=== PATIENT | female | born 1955 | race Hispanic/Latino ===

== ENCOUNTER → 2018-05-31 | Day surgery (SDC) | payer MEDICARE ==
[~2018-05-31] MED LIST: CICLOPIROX15 GM TOP; FLECAINIDE ACE100 MG PO; GABAPENTIN100 MG PO; HYDROCHLOROTHIA25 MG PO; LOSARTAN POTAS100 MG PO; LOTEMAX3.5 GM OU; METOPROLOL TART25 MG PO; NAPROXEN250 MG PO; NORCO 10-325 T1 EACH PO; OMEPRAZOLE40 MG PO; PROPOFOL IV EMULSION 10 MG/ML 50 ML VIAL ONE; TRIAMCINOLONE A15 G1 TOP; ZOFRAN ODT4 MG PO
--- OUTSIDE RECORDS SUMMARY | 2018-05-31 11:39 | XMS REPORT | Summary of Care ---
Author Author DEWAYNE THOMPSON M.D. Organization Unknown Address [facility] Phone Unavailable Care Team Providers Care Channeler Outsole Name Role Phone DEWAYNE THOMPSON M.D. Unavailable Unavailable Unavailable Unavailable Functional Status Name Dates Details Functional status health issues are not documented Status: Name Dates Details Cognitive status health issues are not documented Status: Problems Name Dates Details Left knee pain (719.46, M25.562) Status: Active Primary localized osteoarthritis of both knees (715.16, M17.0) Status: Active Medications Name Dates Details Ibuprofen 800 MG Oral Tablet TAKE 1 TABLET EVERY 8 HOURS Quantity: 30 DEWAYNE THOMPSON M.D. * Start : 16-Jun-2017 Active Diclofenac Sodium 1 % Transdermal Gel Apply one inch to the affected area up to three times a day. * Quantity: 1 Refills: 1 DEWAYNE THOMPSON M.D. * Start : 15-Dec-2017 Active 100 GM Tube Allergies and Adverse Reactions Name Dates Details Allergy history not documented Status: Procedures Procedure Dates Details Procedures not documented Immunization Name Dates Details Immunizations not documented Social History Name Dates Details Unknown if ever smoked Vital Signs Date Test Result Details No Known Vitals to report Results Date Description Value Details Results not documented Plan of Care Name Dates Details Planned Observations Planned Goals not documented Interventions Provided Medication Changes* Diclofenac Sodium 1 % Transdermal Gel - Start Plan* Patient Education/Instructions: * Patient Education Provided * Reassurance * Counseling Provided. * Orders: * Medications:. * We have discussed nonoperative treatment options which are primarily exhausted today. I will give her topical nonsteroidal anti-inflammatories to apply for knee pain and swelling. It is time for total knee arthroplasty. We have given her preoperative clearance packet in preparation for left total knee arthroplasty. Follow-up after packet is complete plan surgical intervention. * Follow Up: * Please schedule an appointment as needed for any future problems or concerns. Instructions Name Dates Details Instructions not documented Encounters Appointment; DEWAYNE THOMPSON M.D. Encounter Diagnosis: Problem not documented On: 16-Jun-2017 9:45 Appointment; DEWAYNE THOMPSON M.D. Encounter Diagnosis: Problem not documented On: 18-Oct-2017 11:15 Appointment; DEWAYNE THOMPSON M.D. Encounter Diagnosis: Problem not documented On: 15-Dec-2017 8:45
[2018-05-31 13:30] VITALS: BP 159/81
== END | disposition home or self-care (01) ==
LOC: OR 11:38
PROVIDERS: ATTEND Internal Medicine
DX: K92.1 Melena (principal); K62.1 Rectal polyp; K21.9 Gastro-esophageal reflux disease without esophagitis; I10 Essential (primary) hypertension; G47.33 Obstructive sleep apnea (adult) (pediatric); E66.9 Obesity, unspecified; I48.91 Unspecified atrial fibrillation; I44.0 Atrioventricular block, first degree; Z01.810 Encounter for preprocedural cardiovascular examination; Z68.37 Body mass index [BMI] 37.0-37.9, adult
CPT/HCPCS: 45380; 93005